=== PATIENT | female | born 1970 | race Caucasian/White ===

== ENCOUNTER 2016-11-18 23:41 | Emergency (ER) | payer OTHER ==
[~2016-11-18] VITALS: Ht 175.3 cm; Wt 75.0 kg
[~2016-11-18 23:41] MED LIST: KLON2TAB; LEXA20TA; SOMA350T
[2016-11-18 23:54] VITALS: BP 118/75; PULSE 90; RESP 16; TEMP 98.4; O2SAT 97
--- NOTE | 2016-11-19 00:10 | PD ---
HPI Chief Complaint: Psychiatric Symptoms Time Seen by Provider: 23:58 Travel History International Travel<30 days: No Contact w/Intl Traveler<30days: No Traveled to known affect area: No History of Present Illness HPI The patient is a 46-year-old female who presents to the emergency department via EMS as a Daugherty act. The patient states she was drinking alcohol earlier tonight, one of the commerce self down, and cut the volar aspect of her left wrist with a box blank machine feeder. The patient has a history of "cutting ", however , did not have any suicidal ideation. The police affidavit states the patient made a statement regards to wanting to take pills to kill herself, however, the patient denies any suicidal ideation. She does make references to that she is 46 years old and still cuts herself, but denies any outright depression. She denies any illicit drug use. She states her last tetanus shot was approximately 4-5 years ago. She denies any other current physical complaints. She denies any hallucinations or delusions. PFSH Past Medical History Asthma: Yes Blood Disorders: No Anxiety: Yes Depression: Yes Cancer: No Cardiovascular Problems: Yes High Cholesterol: Yes Endocrine: No Gastrointestinal Disorders: Yes GERD: Yes Genitourinary: No Immune Disorder: No Musculoskeletal: Yes (NUMBNESS) Neurologic: No Psychiatric: No Respiratory: Yes (Asthma, ) Influenza Vaccination: No ?: Not LMP: 11/14/16 Past Surgical History Abdominal Surgery: Yes (collectomy) AICD: No Section: Yes Gynecologic Surgery: Yes (D AND C AND C SEC) Joint Replacement: No Neurologic Surgery: No Pacemaker: No Social History Alcohol Use: Yes (socially) Tobacco Use: Yes (1/2 PK PER DAY) Substance Use: No Allergies-Medications (Allergen,Severity, Reaction): Coded Allergies: penicillin G (Unverified Allergy, Unknown, 11/10/16) Uncoded Allergies: SCALLOPS (Allergy, Severe, THROAT SWELLS SHUT, 05/10/05) Reported Meds & Prescriptions Reported Meds & Active Scripts Active Reported Soma (Carisoprodol) 350 Mg Tab Klonopin (Clonazepam) 2 Mg Tab Lexapro (Escitalopram Oxalate) 20 Mg Tab Review of Systems Except as stated in HPI: all other systems reviewed are Neg HENT: No: Headaches, Lightheadedness Cardiovascular: No: Chest Pain or Discomfort Respiratory: No: Shortness of Breath Gastrointestinal: No: Nausea, Vomiting, Abdominal Pain Musculoskeletal: No: Pain Skin: Positive Other (laceration of the lower aspect of the left wrist.) Psychiatric: Positive: Substance Abuse (alcohol use), No: Depression, Suicidal Ideations, Homicidal Ideation Physical Exam Narrative GENERAL: Awake, alert, nontoxic-appearing 46-year-old female who appears her stated age and is in no acute respiratory distress. SKIN: Focused skin assessment warm/dry. 4 cm very superficial laceration over the volar aspect of the left wrist, there is no subcutaneous tissue involvement. No visible tendon involvement. HEAD: Atraumatic. Normocephalic. EYES: Pupils equal and round. Mild injection bilateral from crying. ENT: No nasal bleeding or discharge. Breath smells of alcohol. NECK: Trachea midline. No JVD. CARDIOVASCULAR: Regular rate and rhythm. No murmur appreciated. RESPIRATORY: No accessory muscle use. Clear to auscultation. Breath sounds equal bilaterally. GASTROINTESTINAL: Abdomen soft, non-tender, nondistended. No rebound tenderness. MUSCULOSKELETAL: No obvious deformities. No clubbing. No cyanosis. No edema. Positive left radial pulse. Patient is able fully flex and extend the left wrist as well as intrinsic hand muscles on the left hand. NEUROLOGICAL: Awake and alert. No obvious cranial nerve deficits. Motor grossly within normal limits. Normal speech. PSYCHIATRIC: Somewhat tearful, insight and judgment appear normal. Data Data Last Documented VS Vital Signs Date Time Temp Pulse Resp B/P (MAP) Pulse Ox O2 Delivery O2 Flow Rate FiO2 11/18/16 23:54 98.4 90 16 118/75 (89) 97 Orders Orders Complete Blood Count With Diff (11/19/16 00:03) Comprehensive Metabolic Panel (11/19/16 00:03) Psych Screen (11/19/16 00:03) Drug Screen, Random Urine (11/19/16 00:03) Alcohol (Ethanol) (11/19/16 00:03) Wound Care (11/19/16 00:03) Labs Laboratory Tests Test 11/19/16 00:10 White Blood Count 5.8 TH/MM3 Red Blood Count 3.68 MIL/MM3 Hemoglobin 13.0 GM/DL Hematocrit 38.6 % Mean Corpuscular Volume 104.8 FL Mean Corpuscular Hemoglobin 35.2 PG Mean Corpuscular Hemoglobin Concent 33.6 % Red Cell Distribution Width 13.1 % Platelet Count 291 TH/MM3 Mean Platelet Volume 8.1 FL Neutrophils (%) (Auto) 46.5 % Lymphocytes (%) (Auto) 42.6 % Monocytes (%) (Auto) 5.4 % Eosinophils (%) (Auto) 4.9 % Basophils (%) (Auto) 0.6 % Neutrophils # (Auto) 2.7 TH/MM3 Lymphocytes # (Auto) 2.5 TH/MM3 Monocytes # (Auto) 0.3 TH/MM3 Eosinophils # (Auto) 0.3 TH/MM3 Basophils # (Auto) 0.0 TH/MM3 CBC Comment DIFF FINAL Differential Comment Blood Urea Nitrogen 12 MG/DL Creatinine 1.05 MG/DL Random Glucose 86 MG/DL Total Protein 7.3 GM/DL Albumin 3.8 GM/DL Calcium Level 8.7 MG/DL Alkaline Phosphatase 65 U/L Aspartate Amino Transf (AST/SGOT) 21 U/L Alanine Aminotransferase (ALT/SGPT) 20 U/L Total Bilirubin 0.2 MG/DL Sodium Level 142 MEQ/L Potassium Level 3.9 MEQ/L Chloride Level 108 MEQ/L Carbon Dioxide Level 23.7 MEQ/L Anion Gap 10 MEQ/L Estimat Glomerular Filtration Rate 56 ML/MIN Urine Opiates Screen NEG Urine Barbiturates Screen NEG Urine Amphetamines Screen NEG Urine Benzodiazepines Screen POS Urine Cocaine Screen POS Urine Cannabinoids Screen POS Ethyl Alcohol Level 206 MG/DL MDM Medical Decision Making Medical Screen Exam Complete: Yes Emergency Medical Condition: Yes Medical Record Reviewed: Yes Interpretation(s) Laboratory Tests Test 11/19/16 00:10 White Blood Count 5.8 TH/MM3 Red Blood Count 3.68 MIL/MM3 Hemoglobin 13.0 GM/DL Hematocrit 38.6 % Mean Corpuscular Volume 104.8 FL Mean Corpuscular Hemoglobin 35.2 PG Mean Corpuscular Hemoglobin Concent 33.6 % Red Cell Distribution Width 13.1 % Platelet Count 291 TH/MM3 Mean Platelet Volume 8.1 FL Neutrophils (%) (Auto) 46.5 % Lymphocytes (%) (Auto) 42.6 % Monocytes (%) (Auto) 5.4 % Eosinophils (%) (Auto) 4.9 % Basophils (%) (Auto) 0.6 % Neutrophils # (Auto) 2.7 TH/MM3 Lymphocytes # (Auto) 2.5 TH/MM3 Monocytes # (Auto) 0.3 TH/MM3 Eosinophils # (Auto) 0.3 TH/MM3 Basophils # (Auto) 0.0 TH/MM3 CBC Comment DIFF FINAL Differential Comment Blood Urea Nitrogen 12 MG/DL Creatinine 1.05 MG/DL Random Glucose 86 MG/DL Total Protein 7.3 GM/DL Albumin 3.8 GM/DL Calcium Level 8.7 MG/DL Alkaline Phosphatase 65 U/L Aspartate Amino Transf (AST/SGOT) 21 U/L Alanine Aminotransferase (ALT/SGPT) 20 U/L Total Bilirubin 0.2 MG/DL Sodium Level 142 MEQ/L Potassium Level 3.9 MEQ/L Chloride Level 108 MEQ/L Carbon Dioxide Level 23.7 MEQ/L Anion Gap 10 MEQ/L Estimat Glomerular Filtration Rate 56 ML/MIN Urine Opiates Screen NEG Urine Barbiturates Screen NEG Urine Amphetamines Screen NEG Urine Benzodiazepines Screen POS Urine Cocaine Screen POS Urine Cannabinoids Screen POS Ethyl Alcohol Level 206 MG/DL Differential Diagnosis Differential diagnosis includes self-inflicted laceration, tendon laceration, substance induced mood disorder, depressive disorder NOS, alcohol intoxication, adjustment reaction, stress reaction. Narrative Course Labs were drawn and sent. The patient's wound was superficial, was cleaned with soap and water, Steri-Strips were applied and a dressing was applied. The patient's tetanus shot is up-to-date. Psychiatric evaluation was ordered. The patient's tox screen was positive for cannabinoids, cocaine, and benzodiazepines. Alcohol level is elevated at 206. The patient is medically cleared to be evaluated by psychiatry. Disposition as per psych. Diagnosis Primary Impression: Substance induced mood disorder Additional Impression: Superficial laceration Condition: Stable Josemanuel Lui MD Nov 19, 2016 00:10
[2016-11-19 00:28] LABS: AUTOMATED NEUTROPHIL # 2.7 TH/MM3 (1.8-7.7); BASOPHIL % 0.6 % (0.0-2.0); EOSINOPHIL # 0.3 TH/MM3 (0-0.4); EOSINOPHIL % 4.9 % (0.0-4.0); HEMATOCRIT 38.6 % (35.0-46.0); HEMO FLAGS DIFF FINAL; LYMPH % 42.6 % (9.0-44.0); LYMPHOCYTE # 2.5 TH/MM3 (1.0-4.8); MEAN CELL VOLUME 104.8 FL (80.0-100.0); MEAN CORPUSCULAR HEMOGLOBIN 35.2 PG (27.0-34.0); MEAN CORPUSCULAR HGB CONC 33.6 % (32.0-36.0); MONO % 5.4 % (0.0-8.0); NEUT % 46.5 % (16.0-70.0); PLATELET COUNT 291 TH/MM3 (150-450); RED BLOOD COUNT 3.68 MIL/MM3 (4.00-5.30); RED CELL DISTRIBUTION WIDTH 13.1 % (11.6-17.2); WHITE BLOOD COUNT 5.8 TH/MM3 (4.0-11.0)
[2016-11-19 00:50] LABS: ALT (GPT) 20 U/L (10-53); ANION GAP 10 MEQ/L (5-15); AST (GOT) 21 U/L (15-37); BICARBONATE 23.7 MEQ/L (21.0-32.0); BLOOD UREA NITROGEN 12 MG/DL (7-18); CHLORIDE 108 MEQ/L (98-107); GLOMERULAR FILTRATION RATE 56 ML/MIN (>89); POTASSIUM 3.9 MEQ/L (3.5-5.1); SODIUM (NA) 142 MEQ/L (136-145)
[2016-11-19 00:52] LABS: ALKALINE PHOSPHATASE 65 U/L (45-117); TOTAL BILIRUBIN ADULT 0.2 MG/DL (0.2-1.0)
[2016-11-19 01:03] LABS: ALCOHOL 206 MG/DL (0-5)
[2016-11-19 05:38] VITALS: BP 116/62; PULSE 74; RESP 16; TEMP 98; O2SAT 97
[2016-11-19 09:41] VITALS: BP 108/61; PULSE 73; RESP 16; O2SAT 95
[2016-11-19 16:26] VITALS: BP 108/64
--- NOTE | 2016-11-19 16:26 | PD ---
History of Present Illness Chief Complaint: Psychiatric Symptoms Time Seen by Provider: 16:00 Travel History International Travel<30 Days: No Contact w/Intl Traveler<30days: No Known affected area: No Legal Status Legal Status: Daugherty Act Daugherty Act Signed By: Antelmo Jones History of Present Illness: History of Present Illness HPI The patient is a 46-year-old female who denies previous psychiatric history and with hx of substance abuse who presents to the emergency department via EMS as a Daugherty act initiated by [facility]. The BA alleges that " Pebbles cut herself with a sharp object She advised she wished she had enough balls so she could . Pebbles refused treatment". Patient was intoxicated when the BA was initiated and her BAL on arrival to ED was 206. Her toxicology was also positive for benzos, cocaine, cannabinoids. She was monitored in secure environment and presented no behavioral concerns and no suicidality. She was requesting to be discharge as she has to go to work. EMR reviewed. She has one previous admission s/p overdose in 2005. The patient is awake, alert, oriented female in hospital gown. Speech is clear and logical. She is clinically sober.There is no indiction that she is experiencing any psychosis, no sweetie and no suicidal or homicidal ideation, intent or plan. She states " I cut to calm me down. I have been cutting for many years" I am not suicidal . I love my life. I am trying to find my daughter who has been missing and I am not trying to kill myself". PFSH Past Medical History Asthma: Yes Blood Disorders: No Anxiety: Yes Depression: Yes Cancer: No Cardiovascular Problems: Yes High Cholesterol: Yes Endocrine: No Gastrointestinal Disorders: Yes GERD: Yes Genitourinary: No Immune Disorder: No Musculoskeletal: Yes (NUMBNESS) Neurologic: No Psychiatric: No Respiratory: Yes (Asthma, ) Influenza Vaccination: No ?: Not LMP: 11/14/16 Past Surgical History Abdominal Surgery: Yes (collectomy) AICD: No Section: Yes Gynecologic Surgery: Yes (D AND C AND C SEC) Joint Replacement: No Neurologic Surgery: No Pacemaker: No Psychiatric History Psychiatric History Hx Psychiatric Treatment: PATIENT WAS ADMITTED FROM 05/10/2005 TO 05/11/2005 FOR ATTEMPTED OVERDOSE. Not currently in tx. Went to [facility] but did not follow up w [facility]. History of Inpatient Treatment: Yes Guns or firearms in home: No Social History Single female. lives with a roommate. 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 Hx of incarceration for possession of illegal substances Hx Alcohol Use: Yes (socially) Hx Tobacco Use: Yes (1/2 PK PER DAY) Hx Substance Use: No Hx of Substance Use Treatment: No Allergies-Medications (Allergen,Severity, Reaction): Coded Allergies: penicillin G (Unverified Allergy, Unknown, 11/10/16) Uncoded Allergies: SCALLOPS (Allergy, Severe, THROAT SWELLS SHUT, 05/10/05) Reported Meds & Prescriptions Reported Meds & Active Scripts Active Reported Soma (Carisoprodol) 350 Mg Tab Klonopin (Clonazepam) 2 Mg Tab Lexapro (Escitalopram Oxalate) 20 Mg Tab Review of Systems Except as stated in HPI: all other systems reviewed are Neg Exam Alert: Yes [place]: Person (ox4) Mood: Anxious, Calm Affect: Appropriate Speech: Clear, Logical Eye Contact: Normal Memory Intact: Comment (No impairmetn) Hallucinations: Other (negative) Delusions: No Suicidal: Ideation (denies any) Homicidal: Ideation (deneis any) Insight/Judgement Fair . Not impaired. MDM Medical Decision Making Medical Record Reviewed: Yes Assessment/Plan The patient is a 46-year-old female who denies previous psychiatric history and with hx of substance abuse who presents to the emergency department via EMS as a Daugherty act initiated by [facility]. The BA alleges that " Pebbles cut herself with a sharp object She advised she wished she had enough balls so she could . Pebbles refused treatment". Patient intoxicated at the time of the BA. After patient sobered up clinically she presented no acute psychiatric symptomatology. She denies any suicidal or homicidal ideation, intent or plan. She reports she has along history of SIB by cutting. Patient does not meet criteria for BA . Patient is recommended follow up at [facility] if she chooses to do so. Cleared from psychiatry for discharge Orders Orders Complete Blood Count With Diff (11/19/16 00:03) Comprehensive Metabolic Panel (11/19/16 00:03) Psych Screen (11/19/16 00:03) Drug Screen, Random Urine (11/19/16 00:03) Alcohol (Ethanol) (11/19/16 00:03) Wound Care (11/19/16 00:03) Diet Regular Basic (11/19/16 Breakfast) Results Vital Signs Date Time Temp Pulse Resp B/P (MAP) Pulse Ox O2 Delivery O2 Flow Rate FiO2 11/19/16 11:20 11/19/16 09:41 73 16 108/61 (77) 95 Room Air 11/19/16 05:38 98.0 74 16 116/62 (80) 97 Room Air 11/18/16 23:54 98.4 90 16 118/75 (89) 97 Laboratory Tests Test 11/19/16 00:10 White Blood Count 5.8 Red Blood Count 3.68 Hemoglobin 13.0 Hematocrit 38.6 Mean Corpuscular Volume 104.8 Mean Corpuscular Hemoglobin 35.2 Mean Corpuscular Hemoglobin Concent 33.6 Red Cell Distribution Width 13.1 Platelet Count 291 Mean Platelet Volume 8.1 Neutrophils (%) (Auto) 46.5 Lymphocytes (%) (Auto) 42.6 Monocytes (%) (Auto) 5.4 Eosinophils (%) (Auto) 4.9 Basophils (%) (Auto) 0.6 Neutrophils # (Auto) 2.7 Lymphocytes # (Auto) 2.5 Monocytes # (Auto) 0.3 Eosinophils # (Auto) 0.3 Basophils # (Auto) 0.0 CBC Comment DIFF FINAL Differential Comment Blood Urea Nitrogen 12 Creatinine 1.05 Random Glucose 86 Total Protein 7.3 Albumin 3.8 Calcium Level 8.7 Alkaline Phosphatase 65 Aspartate Amino Transf (AST/SGOT) 21 Alanine Aminotransferase (ALT/SGPT) 20 Total Bilirubin 0.2 Sodium Level 142 Potassium Level 3.9 Chloride Level 108 Carbon Dioxide Level 23.7 Anion Gap 10 Estimat Glomerular Filtration Rate 56 Urine Opiates Screen NEG Urine Barbiturates Screen NEG Urine Amphetamines Screen NEG Urine Benzodiazepines Screen POS Urine Cocaine Screen POS Urine Cannabinoids Screen POS Ethyl Alcohol Level 206 Diagnosis Primary Impression: Substance induced mood disorder Additional Impression: Superficial laceration Psychiatrically Cleared: Yes Patient Instructions: General Instructions, Mood Disorders (ED), Medical Clearance for Psychiatric Care (ED), Facial Laceration (ED) Additional Instructions: DISCHARGE HOME DIAGNOSIS SUBSTANCE INDUCED MOOD DISORDER FOLLOW UP [facility] PCP NEEDED RETURN TO ED FOR WORSENING PROBLEMS Disposition: 01 DISCHARGE HOME Condition: Stable Problem Qualifiers Caitlin Lynn Nov 19, 2016 16:26
== END 2016-11-19 16:30 | disposition home or self-care (01) ==
LOC: NEPE 23:41 → NEPJ 11-19 16:30
DX: F19.94 Other psychoactive substance use, unspecified with psychoactive substance-induced mood disorder (principal); S61.512A Laceration without foreign body of left wrist, initial encounter; E78.00 Pure hypercholesterolemia, unspecified; F17.200 Nicotine dependence, unspecified, uncomplicated; W45.8XXA Other foreign body or object entering through skin, initial encounter; Z79.899 Other long term (current) drug therapy; Z87.09 Personal history of other diseases of the respiratory system; Z86.59 Personal history of other mental and behavioral disorders; Z86.79 Personal history of other diseases of the circulatory system; Z87.19 Personal history of other diseases of the digestive system; Z87.39 Personal history of other diseases of the musculoskeletal system and connective tissue
CPT/HCPCS: 80053; 80307; 85025; 99284